=== PATIENT | female | born 1950 | race Caucasian/White ===

== ENCOUNTER → 2023-11-01 | Outpatient (CLI) | payer MEDICARE | LOC: MHCPAIN 10:16 | DX: M43.16 Spondylolisthesis, lumbar region (principal); M48.062 Spinal stenosis, lumbar region with neurogenic claudication; E78.5 Hyperlipidemia, unspecified | CPT/HCPCS: G0463 ==

== ENCOUNTER → 2023-12-28 | Outpatient (CLI) | payer MEDICARE | LOC: MHCPAIN 07:58 | DX: M43.16 Spondylolisthesis, lumbar region (principal); M48.061 Spinal stenosis, lumbar region without neurogenic claudication; M54.50 Low back pain, unspecified | CPT/HCPCS: G0463 ==

== ENCOUNTER → 2024-01-19 | Outpatient (CLI) | payer MEDICARE | LOC: MHCPAIN 01-09 09:31 | DX: M47.817 Spondylosis without myelopathy or radiculopathy, lumbosacral region (principal); M54.50 Low back pain, unspecified | CPT/HCPCS: J0665 ==

== ENCOUNTER → 2024-02-20 | Outpatient (CLI) | payer MEDICARE | LOC: MHCPAIN 08:04 | DX: M54.50 Low back pain, unspecified (principal); M47.817 Spondylosis without myelopathy or radiculopathy, lumbosacral region | CPT/HCPCS: J0665 ==